=== PATIENT | male | born 1955 | race African-American/Black ===

== ENCOUNTER → 2019-08-20 | Outpatient (CLI) | payer OTHER ==
[2019-08-20] VITALS (7 sets, daily range): BP systolic 139–156; BP diastolic 64–97
[~2019-08-20] MED LIST: COREG25 M1 PO; CRESTOR5 MG PO; LISINOPRIL-HCT1 EAC1 PO; LYRICA 50 MG50 MG PO; METFORMIN HCL500 M3 PO; NORVASC 2.5 MG2.5 M1 PO
[2019-08-20 12:46] LABS: HEMATOCRIT 40.3 % (42.0-52.0); HEMOGLOBIN 13.3 gm/dL (14.0-18.0); MCH 31.4 pg (26.0-34.0); MCV 95.2 fL (80.0-100.0); RBC 4.23 mil/uL (4.50-6.00); RDW 13.2 % (10.5-14.5); WBC 7.5 thou/uL (4.0-11.0)
[2019-08-20 12:55] LABS: CALCIUM 9.5 mg/dL (8.5-10.1); POTASSIUM 4.5 mmol/L (3.5-5.1)
== END | disposition home or self-care (01) ==
LOC: CATH 11:57
PROVIDERS: Nuclear Medicine Nuclear Cardiology
DX: I73.9 Peripheral vascular disease, unspecified (principal); I70.1 Atherosclerosis of renal artery; I11.0 Hypertensive heart disease with heart failure; I50.9 Heart failure, unspecified; E11.9 Type 2 diabetes mellitus without complications; E78.5 Hyperlipidemia, unspecified; Z98.890 Other specified postprocedural states; Z79.899 Other long term (current) drug therapy; Z87.19 Personal history of other diseases of the digestive system; Z87.01 Personal history of pneumonia (recurrent)

== ENCOUNTER → 2019-08-29 | Outpatient (CLI) | payer OTHER ==
--- NOTE | 2019-08-29 12:25 | 2DMMODE ---
[facility] [place] [address] 2 D/M-MODE ECHOCARDIOGRAM Name: MARILUZLEEANNA MAE Room #: REG [facility]#: [id number] Admission: 08/29/19 Attend Phys: Lyle Bautista MD Discharge: Date of : 53 Report #: [id number] THIS REPORT FOR: //name// APPROVED REPORT Study performed: 08/29/2019 11:07:13 EXAM: Comprehensive 2D, Doppler, and color-flow Echocardiogram Patient Location: Out-Patient Room #: Echo lab 2 Status: routine BSA: 2.12 HR: 69 bpm BP: 148/80 mmHg Rhythm: NSR Other Information Study Quality: Good Indications Diabetes Dyspnea Hypertension/HDD 2D Dimensions IVSd: 12.87 (7-11mm) LVOT Diam: 25.42 (18-24mm) LVDd: 54.39 mm PWd: 14.05 (7-11mm) Ascending Ao: 32.40 (22-36mm) LVDs: 39.19 (25-40mm) Aortic Root: 37.51 mm IVC: 11.00 mm Volumes Left Atrial Volume (Systole) Single Plane 4CH: 46.90 mL Single Plane 2CH: 58.38 mL LA ESV Index: 29.00 mL/m2 Aortic Valve AoV Peak Leif.: 1.53 m/s AO Peak Gr.: 9.34 mmHg LVOT Max P.00 mmHg LVOT Max V: 1.00 m/s CANDICE Vmax: 3.32 cm2 Mitral Valve E/A Ratio: 0.7 MV Decel. Time: 220.00 ms [facility] [place] [address] 2 D/M-MODE ECHOCARDIOGRAM Name: LEEANNA MCGRAW Room #: REG CL [facility]#: [id number] Admission: 08/29/19 Attend Phys: Lyle Bautista MD Discharge: Date of : 53 Report #: [id number] E Max Leif.: 0.60 m/s MV A Leif.: 0.86 m/s MV PHT: 63.80 ms IVRT: 198.39 ms Pulmonary Valve PV Peak Leif.: 0.79 m/s PV Peak Gr.: 2.50 mmHg Pulmonary Vein P Vein S: 0.59 m/s P Vein A: 0.31 m/s P Vein D: 0.29 m/s P Vein A Dur.: 73.8 msec P Vein S/D Ratio: 2.03 Left Ventricle The left ventricle is normal size. There is normal LV segmental wall motion. Mild concentric left ventricular hypertrophy. Left ventricular systolic function is normal. The left ventricular ejection fraction is within the normal range. LVEF is 50-55%. Grade I - abnormal relaxation pattern. Right Ventricle The right ventricle is normal size. The right ventricular systolic function is normal. Atria The left atrium size is normal. The right atrium size is normal. Aortic Valve The aortic valve is normal in structure. No aortic regurgitation is present. There is no aortic valvular stenosis. Mitral Valve The mitral valve is normal in structure. Trace mitral regurgitation. No evidence of mitral valve stenosis. Tricuspid Valve The tricuspid valve is normal in structure. There is no tricuspid valve regurgitation noted. Pulmonic Valve The pulmonary valve is normal in structure. There is no pulmonic valvular regurgitation. Great Vessels The aortic root is normal in size. IVC is normal in size and [facility] [address] [place] [address] 2 D/M-MODE ECHOCARDIOGRAM Name: LEEANNA MCGRAW MAE Room #: REG [facility]#: [id number] Admission: 08/29/19 Attend Phys: Lyle Bautista MD Discharge: Date of : 53 Report #: [id number] collapses >50% with inspiration. Pericardium There is no pericardial effusion. <Conclusion> The left ventricle is normal size. Mild concentric left ventricular hypertrophy. Left ventricular systolic function is normal. LVEF is 50-55%. Grade I - abnormal relaxation pattern. The right ventricle is normal size. The left atrium size is normal. The aortic valve is normal in structure. Trace mitral regurgitation. There is no tricuspid valve regurgitation noted. <ELECTRONICALLY SIGNED> By: Lyle Bautista MD 08/29/19 1225 1225 1225 Lyle Bautista MD /INF
== END ==
LOC: CV 09:34
DX: R06.09 Other forms of dyspnea (principal); E78.00 Pure hypercholesterolemia, unspecified; I11.9 Hypertensive heart disease without heart failure; E11.9 Type 2 diabetes mellitus without complications; Z87.891 Personal history of nicotine dependence; Z79.899 Other long term (current) drug therapy